=== PATIENT | female | born 1980 | race Two or more races ===

== ENCOUNTER 2018-09-25 13:43 | Inpatient (IN) | payer MEDICAID ==
[~2018-09-25] VITALS: Ht 170.2 cm; Wt 72.0 kg
[2018-09-25 14:03] VITALS: Ht 170.2 cm; Wt 72.0 kg
[2018-09-25 14:04] VITALS: BP 103/62; RESP 19
[2018-09-25] MEDS ORDERED: MISOPROSTOL 200 MCG TAB PR PRN ×2 (14:30→23:30)
[2018-09-25] MEDS ORDERED: CARBOPROST 250 MCG INJ IM PRN ×2 (14:30→23:30)
[2018-09-25] MEDS ORDERED: OXYTOCIN 30 UNITS/LR 500 ML IV PRN ×2 (14:30→23:30)
[2018-09-25] MEDS ORDERED: METHYLERGONOVINE 0.2 MG INJ IM PRN ×2 (14:30→23:30)
[2018-09-25] MEDS ORDERED: CEFAZOLIN 2 GM/50 ML (PMX) 50 ML IVPB SCH (14:30)
[2018-09-25] MEDS: LACTATED RINGER'S 1,000 ML IV SCH ×3 (15:25→21:20)
--- NOTE | 2018-09-25 19:25 | PREAC ---
Date/Time of Note Date/Time of Note DATE: 09/25/18 TIME: 19:24 Anesthesia Eval and Record Evaluation Time Pre-Procedure Interview DATE: 09/25/18 TIME: 19:24 Age 37 Sex female NPO: 8 hrs Preoperative diagnosis Previous Planned procedure Repeat Past Medical History Past Medical History: None Surgery & Anesthesia Issues No known issue Meds Anticoagulation: No Beta Ebenezer within 24 hr: No Reason Beta Ebenezer not given: Pt. not on B-Ebenezer Current Medications Cefazolin Sodium/ Dextrose 50 ml @ 100 mls/hr ONCE IVPB ; Start 09/25/18 at 1 4:30 Oxytocin/Lactated Ringer's 500 ml @ 0 mls/hr ONCE PRN IV .VAGINAL BLEEDING; Start 09/25/18 at 14:30 Methylergonovine Maleate (Methergine) 0.2 mg ONCE PRN IM .VAGINAL BLEEDING; Start 09/25/18 at 14:30 Carboprost Tromethamine (Hemabate) 250 mcg ONCE PRN IM .VAGINAL BLEEDING; Start 09/25/18 at 14:30 Misoprostol (Cytotec) 1,000 mcg ONCE PRN UT .VAGINAL BLEEDING; Start 09/25/18 at 14:30 Lactated Ringer's 1,000 ml @ 125 mls/hr Q8H IV Last administered on 09/25/18at 16:49; Admin Dose 125 MLS/HR; Start 09/25/18 at 14:10 Meds reviewed: Yes Allergies Coded Allergies: No Known Drug Allergies (Verified Allergy, Unknown, 09/25/18) Allergies Reviewed: Yes Labs/Studies Labs Reviewed: Reviewed by anesthesiologist Result Diagram: 09/25/18 1520 Laboratory Tests 09/25/18 15:20 Blood Bank Test 09/25/18 16:39 Antibody Screen NEGATIVE Blood Type O POSITIVE Rh Immune Globulin Candidate NO test: N/A Pre-procedure Exam Last vitals Vital Signs Date Temp Pulse Resp B/P (MAP) Pulse Ox O2 O2 Flow FiO2 Time Delivery Rate 09/25/18 98.0 19 103/62 14:04 (76) Airway: Adequate mouth opening Mallampati: Mallampati II Teeth: Normal Lung: Normal Heart: Normal ASA Physical Status ASA physical status: 2 Emergency: None Planned Anesthetic Neuraxial: Spinal Planned Pain Management Sub-arachniod narcotics Pre-operative Attestations Prior to commencing anesthesia and surgery, the patient was re-evaluated, there was verification of: *The patient's identity *The results of appropriate recent lab work and preoperative vital signs *The above evaluation not changing prior to induction *Anesthetic plan, risk benefits, alternative and complications discussed with patient/family; questions answered; patient/family understands, accepts and wishes to proceed. LINDA KING MD Sep 25, 2018 19:25
[2018-09-25] MEDS ORDERED: ONDANSETRON 4 MG INJ ONE (19:28)
[2018-09-25] MEDS ORDERED: PHENYLephrine (100 MCG/ML) 10ML SYG ONE (19:28)
[2018-09-25] MEDS ORDERED: morphine SULFATE/PF (10 MG/10 ML) INJ ONE (19:29)
--- NOTE | 2018-09-25 19:53 | HP ---
Date/Time of Note Date/Time of Note DATE: 09/25/18 TIME: 19:42 OB - History Hx of Present Free Text/Dictation 37 years old 2 para 1-0-0-1 with single intrauterine at 40 weeks and 3 days with a NATE of 09/22/2018 with previous delivery desires repeat delivery. She declined TOLAC. She states good movement. She denies nausea, vomiting, shortness of breath, chest pain, headache, visual changes, vaginal bleeding or LOF. Risk factors: - Previous delivery - Advanced maternal age Chief Complaint: Scheduled repeat delivery Estimated Due Date: Sep 22, 2018 : 2 Para: 1 Spontaneous : 0 Therapeutic : 0 Care: Good Care Ultrasounds: Normal mid trimester US Obstetrical Complications: None Medical Complications: None Past Family/Social History * Past Medical, Surgical, Family and Obstetric Histories reviewed from chart. Blood Type: O+ Rubella: immune RPR/VDRL: Negative GBS Status: Negative HBsAG: Negative OB Admission Exam Vital Signs Vital Signs Vital Signs Date Temp Pulse Resp B/P (MAP) Pulse Ox O2 O2 Flow FiO2 Time Delivery Rate 09/25/18 98.0 19 103/62 14:04 (76) Physical Exam HEENT: WNL Heart: Rhythm Normal Lungs: Clear Abdomen: WNL Extremities: Normal Membranes: Intact Heart Rate: 140's Accelerations: Accelerations Present Decelerations: No Decelerations Varibility: Moderate Contractions on Admission: None Last 72 hours Lab Results CBC & BMP 09/25/18 15:20 OB Assessment/Plan Other plan: 37 years old 2 para 1-0-0-1 with single intrauterine at 40 weeks and 3 days with previous delivery desires repeat deliver y -FHR: No sign of metabolic acidosis- Category I -Continuous EFM, toco -CBC, blood type and screen -Please see the orders -O+/Rubella: Immune -GBS: Negative The risk of delivery including but not limited to bleeding, infection, injury to other organs (bowel, bladder, ureter, vessels, nerves), injury to fetus, blood transfusion, blood transfusion related infection, risk of anesthe susan, adhesion, needs for future , removal of uterus or any other indicated surgery was discussed with the patient and her family. She expressed understanding. All of her questions were answered. She signed the informed consent. PHYSICIAN'S VERIFICATION OF INFORMED CONSENT The patient was counseled regarding the procedure, its indications, risks, potential complications and alternatives and any questions were answered. Consent was obtained. PLANNED PROCEDURE/TREATMENT: delivery with possible using vacuum/forceps and any other indicated surgery PHYSICIAN'S VERIFICATION OF INFORMED CONSENT FOR BLOOD TRANSFUSION: There is a reasonable possibility that blood transfusion will be necessary as a result of the patient's procedure. I have discussed the following with the kathi sevilla/patient's legal footwear sales representative: An explanation of the benefits and risks of the transfusion of blood or blood products and the possible alternatives. All questions have been answered to the patient's satisfaction. INFORMED CONSENT:The patient has been informed of: The nature of the proposed care, treatment, services, medications, interventions or procedures. Potential benefits, risks or side effects, including potential problems related to recuperation. The likelihood of achieving care treatment and service goals. Reasonable alternatives to the proposed care, treatment and service. The relevant risks, benefits and side effects related to alternatives, including the possible results of not receiving care, treatment and services. When indicated, any limitations on the confidentiality of information learned from or about the patient. If appropriate, the risks, benefits and alternatives of the drugs to be used for sedation/analgesia including moderate sedation. If appropriate, patient has been provided information on the risks, benefits and alternatives to the transfusion of blood and/or blood products. If appropriate, patient has been provided information regarding the [employer] Blood Act. DARYL SCHWARZ Sep 25, 2018 19:53
--- NOTE | 2018-09-25 21:18 | OPR ---
Operative Report Planned Procedure Procedure date Sep 25, 2018 Procedure(s) Repeat low transverse delivery Performed by see signature line Insurance Broker: KIMBERLY MCGRATH MD Anesthesiologist: LINDA KING MD Pre-procedure diagnosis 37 years old 2 para 1-0-0-1 with previous delivery at 40 weeks and 3 days desires repeat delivery. [id number] Anesthesia Type: [id number] spinal Post-Procedure Post-procedure diagnosis 37 years old 2 para 1-0-0-1 with previous delivery at 40 weeks and 3 days desires repeat delivery. Findings 1. Normal uterus except there was a 3 cm window on lower uterine segment. Normal fallopian tubes and ovaries 2. Viable male in cephalic presentation. 6 at one minute and 9 in 5 minutes. Weight: 3235 g - 7 pound 2 ounces. Time of delivery: 20:16 3. Placenta with three vessel cord 4. Amniotic fluid - Clear Estimated Blood Loss: 500 - 600 mls Specimen(s) none Grafts/Implant(s) none Complication(s) none Pt Condition post procedure: stable Disposition: PACU Procedure Description INDICATION AND HISTORY: A 37 years old 2 para 1-0-0-1 with previous delivery at 40 weeks and 3 days desires repeat delivery. The risk of delivery including but not limited to bleeding, infection, injury to other organs (bowel, bladder, ureter, vessels, nerves), injury to fetus, blood transfusion, blood transfusion related infection, risk of anesthesia, adhesion, needs for future , removal of uterus or any other indicated surgery was discussed with the patient and her family. She expressed understanding. All of her questions were answered. She signed the informed consent. DESCRIPTION OF OPERATION: The patient was taken to the operating room, where she was identified and the procedure was verified. The patient received two gram of Ancef 30 minutes prior to surgery. Spinal anesthesia was placed by anesthesiologist. The patient placed in the dorsal supine position with a left tilt. The heart rate was 130 bpm. The patient was then prepped and draped in the normal sterile fashion. A Pfannenstiel skin incision was made and carried down to the fascia with knife. The fascia was incised in the midline and the fascial incision was carried laterally with Kapoor scissors. The superior portion of the fascial incision was then grasped with Yimi clamps and tented up and dissected off the underlying rectus muscle with sharp dissection. The lower portion of the fascial incision was then made in a similar fashion. The rectus muscle was and the peritoneum was entered. The peritoneal incision was then stretched and an Dimitrios retractor was inserted. The utero-vesical peritoneal reflection was incised transversely and the bladder flap was reflected inferiorly. As noted above there was 3 cm window on lower uterine segment, an incision was made above the window in the lower uterine segment in a transverse fashion with a knife and extended bluntly. Vacuum used for delivery of baby, the was delivered atraumatically in cephalic presentation with the above findings. The umbilical cord was clamped and cut. The neonatology resuscitation team was present and the baby was handed to them. A cord blood sample was obtained for further evaluation. The placenta and membrane, which appeared normal were Removed. The uterus was exteriorized and cleared of all clot and debris. The uterus was then closed in a two layer fashion with 0- Monocryl. At the time of closure, hemostasis was noted. The gutters were irrigated. The peritoneum was reapproximated with 3-0 Vicryl. The muscle was reapproximated with 3-0 Vicryl. The fascia was approximated with 0-Vicryl in a running fashion. The subcutaneous tissue was re approximated with 3-0 vicryl. The skin was closed with 4-0 Monocryl. All instruments, sponges and needle counts were correct x3. The patient tolerated the procedure well. She transferred to the recovery room in stable condition. DARYL SCHWARZ Sep 25, 2018 21:04
[2018-09-25] MEDS ORDERED: OXYTOCIN 30 UNITS/LR 500 ML IV SCH ×3 (21:30→23:17)
[2018-09-25] MEDS ORDERED: LACTATED RINGER'S 1,000 ML IV PRN (22:08)
--- NOTE | 2018-09-25 22:53 | PAC ---
Date/Time of Note Date/Time of Note DATE: 09/25/18 TIME: 22:52 Post-Anesthesia Notes Post-Anesthesia Note Last documented vital signs Vital Signs Date Temp Pulse Resp B/P (MAP) Pulse Ox O2 O2 Flow FiO2 Time Delivery Rate 09/25/18 98.0 19 103/62 14:04 (76) Activity: WNL Respiratory function: WNL Cardiovascular function: WNL Mental status: Baseline Pain reasonably controlled: Yes Hydration appropriate: Yes Nausea/Vomiting absent: Yes LINDA KING MD Sep 25, 2018 22:53
[2018-09-25] MEDS ORDERED: DEXTROSE 5%-LR 1,000 ML IV SCH (23:17)
[2018-09-25] MEDS ORDERED: EPHEDrine 25 MG/5 ML SYG IV PRN (23:30)
[2018-09-25] MEDS ORDERED: ONDANSETRON 4 MG INJ IV PRN ×2 (23:30)
[2018-09-25] MEDS ORDERED: HYDROmorphONE 1 MG/5 ML IV SYRINGE IV PRN ×3 (23:30)
[2018-09-25] MEDS ORDERED: IPRATROPIUM (NEB) 0.5 MG/2.5 ML AMP HHN PRN (23:30)
[2018-09-25] MEDS ORDERED: hydrALAzine 20 MG INJ IV PRN (23:30)
[2018-09-25] MEDS ORDERED: MEPERIDINE 25 MG INJ IV PRN (23:30)
[2018-09-25] MEDS ORDERED: MAGNESIUM HYDROXIDE 30ML CUP PO PRN (23:30)
[2018-09-25] MEDS ORDERED: MIDAZOLAM 1 MG/ML 2 ML INJ IV PRN (23:30)
[2018-09-25] MEDS ORDERED: DIPHENHYDRAMINE 50 MG INJ IV PRN ×2 (23:30)
[2018-09-25] MEDS ORDERED: morphine 2 MG INJ IV PRN ×2 (23:30)
[2018-09-25] MEDS ORDERED: OXYCODONE/ACETAMINOPHEN (5/325) TAB PO PRN ×2 (23:30)
[2018-09-25] MEDS ORDERED: LANOLIN HPA 1 PKT TOP PRN (23:30)
[2018-09-25] MEDS ORDERED: KETOROLAC 30 MG INJ IV PRN (23:30)
[2018-09-25] MEDS ORDERED: ALBUTEROL 0.083% (NEB) 2.5 MG/3 ML AMP HHN PRN (23:30)
[2018-09-25] MEDS ORDERED: FENTAnyl 50 MCG/ML VIAL IV PRN ×3 (23:30)
[2018-09-25] MEDS ORDERED: NALBUPHINE HCL (10 MG/1 ML) INJ IV PRN (23:30)
[2018-09-25] MEDS ORDERED: TRIMETHOBENZAMIDE 100 MG/ML VIAL IM PRN ×2 (23:30)
[2018-09-25] MEDS ORDERED: NALOXONE (0.4 MG/ML) INJ IV PRN (23:30)
[2018-09-25] MEDS ORDERED: LABETALOL HCL 20MG INJ IV PRN (23:30)
[2018-09-25] MEDS ORDERED: METHYLERGONOVINE 0.2 MG TAB PO PRN (23:30)
[2018-09-25 23:36] VITALS: BP 102/63; PULSE 63; RESP 18
[2018-09-26 04:13] VITALS: BP 94/50; PULSE 59; RESP 18
[2018-09-26] MEDS: LACTATED RINGER'S 1,000 ML IV SCH ×3 (05:15→21:20)
[2018-09-26 08:24] VITALS: BP 90/54; PULSE 68; RESP 16
[2018-09-26] MEDS: SENNA/DOCUSATE NA (8.6MG/50MG) TAB PO SCH ×2 (09:09→21:44)
[2018-09-26] MEDS ORDERED: DIPHTH/TET/ACEL PERTUSS (ADULT) 0.5 ML VIAL IM* ONE (11:00)
[2018-09-26] MEDS ORDERED: HYDROCODONE/APAP (5/325) TAB NGT PRN (11:00)
[2018-09-26 12:40] VITALS: BP 89/52; PULSE 69; RESP 14
[2018-09-26] MEDS: HYDROCODONE/APAP (5/325) TAB GTB SCH ×2 (14:00→22:00)
[2018-09-26] MEDS: IBUPROFEN 800 MG TAB PO SCH ×2 (14:00→21:44)
[2018-09-26 15:40] VITALS: BP 96/52; PULSE 62; RESP 16
[2018-09-26 19:45] VITALS: BP 109/67; PULSE 73; RESP 19
[2018-09-27 03:45] VITALS: BP 99/54; PULSE 69; RESP 19
[2018-09-27] MEDS: LACTATED RINGER'S 1,000 ML IV SCH ×3 (05:20→21:22)
[2018-09-27] MEDS: HYDROCODONE/APAP (5/325) TAB GTB SCH ×3 (06:00→22:00)
[2018-09-27] MEDS: IBUPROFEN 800 MG TAB PO SCH ×3 (06:00→20:25)
[2018-09-27 08:00] VITALS: BP 96/53; PULSE 77; RESP 17
[2018-09-27] MEDS: SENNA/DOCUSATE NA (8.6MG/50MG) TAB PO SCH ×2 (08:53→20:25)
[2018-09-27 16:11] VITALS: BP 97/52; PULSE 72; RESP 18
[2018-09-27 20:00] VITALS: BP 100/51; PULSE 72; RESP 18
[2018-09-28 04:00] VITALS: BP 103/68; PULSE 72; RESP 18
[2018-09-28] MEDS: LACTATED RINGER'S 1,000 ML IV SCH ×2 (05:20→07:42)
[2018-09-28] MEDS: HYDROCODONE/APAP (5/325) TAB GTB SCH (06:00)
[2018-09-28] MEDS: IBUPROFEN 800 MG TAB PO SCH ×2 (06:00→06:46)
[2018-09-28 07:40] VITALS: BP 96/57; PULSE 78; RESP 18
[2018-09-28] MEDS ORDERED: MEASLES,MUMPS,RUBELLA VACCINE INJ SC* ONE (09:00)
[2018-09-28] MEDS ORDERED: DIPHTH/TET/ACEL PERTUSS (ADULT) 0.5 ML VIAL IM* ONE (09:00)
[2018-09-28] MEDS: SENNA/DOCUSATE NA (8.6MG/50MG) TAB PO SCH (09:02)
--- NOTE | 2018-09-29 16:33 | PN ---
Date/Time of Note Date/Time of Note DATE: 09/29/18 TIME: 16:31 OB Subjective Subjective Subjective Late entry note. Patient seen on 09/26/2018 POD#1 Patient is doing well. She denies nausea, vomiting, shortness of breath, chest pain, headache. She has been ambulating without difficulty, tolerating regular diet. Pain is well controlled on current medications OB Objective Objective Objective General: AAO X 3, comfortable, NAD, appropriate mood and affect. Heart: RRR +S1, +S2, no murmurs. Lungs: Clear to auscultation (B/L), no rales, rhonchi or wheezing. ABD: +BS. Soft, non-tender. Uterus 2 cm below umbilicus Incision: Clear, dry, intact. No erythema, drainage or induration. Flank: No CVA tenderness (B/L) LE: Mild edema. No clubbing, cyanosis, thigh or calf tenderness (B/L). Homans 'sign is negative OB Assessment/Plan Other plan: 37 years old -0-0-2 s/p repeat delivery at 40 weeks and 3 days. POD#1 - AF, VSS - Baby is doing well, at bed side. She is bonding well - Contraception methods with R/B/A/FR discussed - Continue care DARYL SCHWARZ Sep 29, 2018 16:33
--- NOTE | 2018-09-29 16:35 | DS ---
Date/Time of Note Date/Time of Note DATE: 09/29/18 TIME: 16:33 Obstetrical Discharge Record Final Diagnosis Final Diagnosis: Term delivered Other Final Diagnosis Late entry note. Patient seen on 09/28/2018 37 years old -0-0-2 s/p repeat delivery at 40 weeks and 3 days. POD#1. course was unremarkable. She is ambulating and tolerating regular diet. She is voiding without difficulty, had bowel movement. Pain is controlled on current medication. - AF, VSS - Baby is doing well, at bed side. She is bonding well - Contraception methods with R/B/A/FR discussed - Continue care - Operative finding including 3 cm window on lower uterine segment discussed in detail with patient. She expressed understanding. All of her questions answered. - Discharged home - Rx and instruction given - Follow up in one and 6 weeks Section Section: Repeat Condition on Discharge Physical Assessment Voiding: Yes Bowel Movement: Yes Breast: Soft, non-tender Fundus: Firm Calf Tenderness: No Patient Condition: Stable DARYL SCHWARZ Sep 29, 2018 16:35
== END 2018-09-28 12:56 | disposition home or self-care (01) | DRG 788 ==
LOC: L-D 13:43 → MS1 09-26 12:42
PROVIDERS: ADMIT Obstetrics & Gynecology; ATTEND Obstetrics & Gynecology
PROC: 10D00Z1 Extraction of Products of Conception, Low, Open Approach (ICD-10-PCS; principal; 2018-09-25 17:00)
DX: O65.5 Obstructed labor due to abnormality of maternal pelvic organs (principal); O34.211 Maternal care for low transverse scar from previous cesarean delivery; O48.0 Post-term pregnancy; Z3A.40 40 weeks gestation of pregnancy; Z37.0 Single live birth
CPT/HCPCS: 85025; 85610; 85730; 86592; 86850; 86900; 86901; 90715; 99464; J0690; J1885; J2274; J2370; J2405; J2590; J7120; J7121